=== PATIENT | male | born 1950 | race Caucasian/White ===

== ENCOUNTER → 2017-04-26 | Outpatient (CLI) | payer OTHER | LOC: BHLMT 14:45 | PROVIDERS: ATTEND Internal Medicine Cardiovascular Disease | DX: I50.9 Heart failure, unspecified (principal); R60.9 Edema, unspecified | CPT/HCPCS: 93306-PO ==

== ENCOUNTER → 2017-09-04 | Outpatient (CLI) | payer OTHER ==
[~2017-09-04] MED LIST: REGADENOSON 0.4 MG/5 ML SYR IVP ONE
--- NOTE | 2017-09-04 19:51 | CPR ---
[f rep st] NONINVASIVE CARDIAC PROCEDURE REPORT PROCEDURE: Lexiscan injection of Lexiscan myocardial perfusion imaging study. 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 PRE: After obtaining informed consent, ensuring patient's n.p.o. status of caffeine for greater than 12 hours, the patient was placed on electrocardiogram. Initial EKG showing sinus rhythm, with nonsp ecific T-wave abnormalities in inferior leads. The patient denies any chest pain or symptoms suggest ing ischemia. Initial blood pressure 110/58, saturation 94% on room air. INJECTION: Patient was given Lexiscan slow IV push, followed by nuclear isotope. Noted initial drop in blood pressure down to 90/52, patient remained asymptomatic of any chest pain, shortness of breat h, or symptoms suggestive of ischemia. Within 5 minutes, blood pressure returned back to normal; aga in, patient remained asymptomatic, he had no significant EKG changes with the injection, and no arrhy thmias noted. After 5 minutes of monitoring, his final blood pressure was 112/58, saturation 98%. IMPRESSION: A 67-year-old male being evaluated for possible cardiac ischemia due to recent abnormal exercise treadmill testing. Patient remained asymptomatic of symptoms suggesting of ischemia through out the procedure, noted mild drop in blood pressure within 1 minute post injection with return back to baseline. Vital signs are stable. He will finish post myocardial perfusion imaging in [facility] at this time. /[id number]
== END ==
LOC: FIMAGING 13:05
PROVIDERS: ATTEND Internal Medicine
DX: R94.31 Abnormal electrocardiogram [ECG] [EKG] (principal); R94.39 Abnormal result of other cardiovascular function study; I51.7 Cardiomegaly; E11.9 Type 2 diabetes mellitus without complications; I10 Essential (primary) hypertension
CPT/HCPCS: 78452; 93017; A9500; J2785